=== PATIENT | male | born 1950 | race Hispanic/Latino ===

== ENCOUNTER → 2021-05-20 | Outpatient (CLI) | payer OTHER, MEDICARE ==
[~2021-05-20] VITALS: Ht 172.7 cm; Wt 59.4 kg
[~2021-05-20] MED LIST: BACL5TAB PO; HYDR-4064 PO; METF-446 PO
[2021-05-20 14:25] LABS: BASOPHILS % (AUTO) 0.7 % (0.0-5.0); HEMATOCRIT 28.4 % (42-54); LYMPHOCYTES % (AUTO) 37.9 % (21.0-51.0); MEAN CORPUSCULAR HEMOGLOBIN 28.6 pg (27.0-33.0); MEAN CORPUSCULAR VOLUME 92.2 fL (79-99); MONOCYTES % (AUTO) 15.1 % (3.0-13.0); NEUTROPHILS % (AUTO) 39.9 % (40.0-77.0); PLATELET COUNT (AUTO) 81 K/uL (130-400); RED BLOOD CELL COUNT(AUTO) 3.08 MIL/uL (4.50-6.20); RED CELL DISTRIBUTION WIDTH 16.2 % (11.0-15.5); WHITE BLOOD COUNT (AUTO) 2.9 K/uL (4.8-10.8)
[2021-05-20 14:41] LABS: CREATININE 0.9 mg/dL (0.5-1.5); INR 1.65 (0.85-1.15); POTASSIUM 3.4 mmol/L (3.5-5.1); PROTHROMBIN TIME 17.2 SEC (9.6-11.6)
[2021-05-20 15:40] LABS: BASOPHILS % (MANUAL) 1 % (0-2); EOSINOPHILS % (MANUAL) 6 % (1-6); LYMPHOCYTES % (MANUAL) 49 % (22-44); MAN.DIFF COMMENT-IMPRESSION MANUAL DIFFERENTIAL; MONOCYTES % (MANUAL) 10 % (2-9); SEGMENTED NEUTROPHILS % 34 % (40-70)
[2021-05-23 11:27] VITALS: BP 129/61
== END | disposition home or self-care (01) ==
LOC: DAH 10:00 → EDSTATUS 05-27 11:00 → EDSEX 05-27 11:00
PROVIDERS: ATTEND Otolaryngology Plastic Surgery within the Head & Neck
DX: J34.2 Deviated nasal septum (principal); Z20.822 Contact with and (suspected) exposure to COVID-19; J34.3 Hypertrophy of nasal turbinates; R04.0 Epistaxis; Z53.8 Procedure and treatment not carried out for other reasons
CPT/HCPCS: 36415; 80048; 85025; 85610; 87426; 93005